=== PATIENT | female | born 1975 | race Caucasian/White ===

== ENCOUNTER → 2019-11-17 11:24 | Outpatient (CLI) | payer MEDICAID, SELFPAY ==
[2018-06-22 13:15] VITALS: BMI 33.5
--- NOTE | 2019-11-17 07:49 | PCM.HP.BLA ---
History and Physical Date of Admission: 11/17/19 Vandana Sinha 1975 ? ? REFERRING PHYSICIAN: Dinorah Neal MD ? CHIEF COMPLAINT: Mammogram Abnormality ? HPI: The patient is a 44 year old female presents with abnormal right breast radiographs. She denies palpable breast masses. She denies nipple discharge. She denies previous breast biopsies. No breast or ovarian cancer known in family. ? Mammograms 10/13/2019 There is a benign lymph node in the right breast at 11 o'clock. There are a grouped pleomorphic calcifications in the right breast superior lateral quadrant posterior depth. No other significant masses or calcifications are seen in the breast. IMPRESSION: SUSPICIOUS FINDING - BIOPSY SHOULD BE CONSIDERED The grouped pleomorphic calcifications in the right breast are suspicious of malignancy. ?A stereotactic biopsy is recommended. ? ? PAST MEDICAL HISTORY ? Anemia 06/12/2013 ? Depression ? ? Hyperlipidemia ? ? Non morbid obesity 05/10/2016 ? PAST SURGICAL HISTORY ? COLONOSCOPY N/A 06/13/2016 ? MAC ? D&C DIAG &/OR THERAP, NOT OB ? 2013 ? GALLBLADDER/EF ? 2012 ? HYSTERECTOMY HX ? 2014 ? LIGATE FALLOPIAN TUBE ? ? ? Tubal ligation ? ? Current Outpatient Medications ? Lactobacillus acidophilus (ACIDOPHILUS) cap ? ? albuterol (PROVENTIL) 2.5 mg /3 mL (0.083 %) nebulizer solution Use 3 mL via nebulizer every 6 hours as needed for Wheezing/Shortness of Breath. Inhale by nebulizer over 5-15 minutes. ? simvastatin (ZOCOR) 40 mg tablet Take 1 tablet by mouth daily at bedtime. For cholesterol ? albuterol HFA (PROVENTIL HFA, VENTOLIN HFA) 90 mcg/actuation inhaler Inhale 2 Puffs as instructed every 4 hours as needed for Wheezing/Shortness of Breath. ? clonazePAM (KLONOPIN) 1 mg tablet Take 1 tablet by mouth three times daily as needed for Anxiety for up to 180 days. ? Fluticasone Propionate (FLOVENT DISKUS) 50 mcg/actuation diskus inhaler Inhale 1 Puff as instructed twice daily. ? albuterol (PROVENTIL) 2.5 mg /3 mL (0.083 %) nebulizer solution Use 3 mL via nebulizer every 4 hours as needed for Wheezing/Shortness of Breath. Use over 5-15minutes. ? docosahexanoic acid/epa (FISH OIL ORAL) Take by mouth. ? aspirin, enteric coated (ASPIRIN, ENTERIC COATED) 81 mg EC tablet Take 81 mg by mouth once daily. ? TURMERIC ORAL Take by mouth. ? ? ALLERGIES: Augmentin [Amoxicillin-Pot Clavulanate]; Steroids [Corticosteroids (Glucocorticoids)] ? PERSONAL HISTORY: Social History ?Tobacco Use ? Smoking status: Former Smoker ? ? Packs/day: 1.00 ? ? Years: 15.00 ? ? Pack years: 15.00 ? ? Types: Cigarettes ? Smokeless tobacco: Never Used ? Tobacco comment: since age 14 yrs old Substance Use Topics ? Alcohol use: Yes ? ? Binge frequency: Less than monthly ? ? Comment: every 3 months ? Drug use: No FAMILY HISTORY ? Diabetes Mother ? ? Hypertension Mother ? ? Heart Mother ? ? Lipids Mother ? ? Cancer Father ? ? ? The review of systems data was entered by the nurse and reviewed and addended as appropriate by me ? Nursing Notes: Pastora Cazares LPN 10/21/2019 2:22 PM Signed REVIEW OF SYSTEMS: General: The patient NOTES fatigue, denies weight loss, NOTES weight gain, denies feeling hot, and denies feelings of cold. Eyes: The patient denies glaucoma, denies eye injury/surgery, does not wear glasses or contacts. Ear/Nose/Throat: The patient denies allergies, denies hayfever, denies ear infections, and denies bloody noses. Cardiovascular: has occasional chest palpitations which she relates to anxiety, denies chest pain, denies heart disease, denies high blood pressure,denies cardiac stent, denies prior heart attack, denies irregular heart beat, denies high cholesterol, denies poor circulation, denies heart failure, other cardiac issues, denies claudication, denies cold feet, denies peripheral arterial stent. Respiratory: The patient denies tuberculosis, denies pneumonia, denies frequent cough, denies pulmonary embolism, denies shortness of breath, and denies coughing up blood. Gastrointestinal: The patient denies difficulty swallowing, denies acid reflux, denies ulcers, denies vomiting, denies jaundice/hepatitis, denies gallbladder problems, denies black or tarry stools, denies hemorrhoids, denies bleeding from rectum, denies diverticulitis, denies constipation, denies diarrhea, denies loss of stool control, and denies hernias. Kidney/Bladder: The patient denies kidney stones, denies urine infections, and denies bloody urine. Skin: The patient denies a history of skin cancer, denies bleeding/changing moles, and denies a history of skin rash. Neurologic: has sinus headaches, has right carpal tunnel symptoms, denies a history of epilepsy/convulsions, denies headaches, denies head/spinal injuries, and denies stroke/TIA. Psychiatric: patient states that she is very anxious, she also admits to episodes of depression Endocrine: The patient denies thyroid disorders, denies diabetes, and denies hormonal problems. Hematologic: The patient denies a history of bruising, denies bleeding, and denies anemia, denies blood clots. Infections: The patient denies a history of measles and mumps, denies rheumatic fever, and denies sexually transmitted diseases. Musculoskeletal: has chronic neck pain with occasional numbness down arm. Obstetrical: menarche onset age 13, first at age 14, , breast feeding denies, BCP use initially at age 15 for about 2 years, then Depo for short period, surgical menopause 5 y ago ? When was patient's last Mammogram screening? 10/2019 Last Colonoscopy: NONE Pastora Cazares LPN ? PHYSICAL EXAMINATION: General: The patient is 44 year old female, well nourished, well hydrated in no acute distress. The patient is oriented to time, place, and person. VITALS: Blood pressure 158/68, pulse 76, temperature 36.6 ?C (97.8 ?F), temperature source Temporal, resp. rate 26, Ht: 5'8 weight 104.3 kg (230 lb), last menstrual period 08/13/2014, SpO2 98 %. Body mass index is 34.97 kg/m?. Head ? Normocephalic. EOM intact with sclera clear and no icterus noted. Mouth with mucus membranes moist. Neck - supple with no jugular venous distention noted. Trachea is midline. No carotid bruits noted. No thyroid enlargement or thyroid nodules detected. No masses noted. Chest/breast ? no asymmetry of breasts noted, no suspicious skin lesions noted, no nipple discharge and both nipples everted, no breast masses noted Lungs ? clear to auscultation. Normal breath sounds. No rales/rhonchi/wheezing noted. No labored breathing noted, such as retractions. No cough heard. Heart ? normal S1 and S2 auscultated. No rubs/clicks/murmurs noted. Regular rate. Abdomen ? soft and benign. Normal bowel sounds No abdominal bruits noted. Difficult to determine if any masses or organomegaly due to body habitus. Extremities ? no calf tenderness noted. No pitting edema noted. Skin ? normal skin integrity. Lymph ? no cervical adenopathy detected, no supraclavicular adenopathy detected, no axillary adenopathy detected Neurological ? gait normal, no focal deficits noted Psych ? calm and appropriate RADIOLOGIC STUDIES: As Noted ? ? IMPRESSION: abnormal right breast radiographs ? PLAN: I have discussed the above with the patient. I have reviewed the breast radiographs with the patient and explained the findings. I have offered right stereotactic breast biopsy. I have explained the procedure to the patient. I have counseled the patient as to the risks of the procedure, including but not limited to: infection, bleeding, injury to any blood vessels/nerves, scar tissue, wound infections, complications of anesthesia, etc. ? the patient understands. The patient wishes to proceed. I have offered valium prior to procedure given patient's stated anxiety, she defers this and states that she will take her klonopin instead and I have counseled patient to have a commercial relief driver with her. I have answered all questions to the patient?s satisfaction and the patient has no further questions. Diagnoses: (R92.8) Abnormal mammogram (primary encounter diagnosis) Return to Clinic: The patient is instructed to follow-up with me after the procedure. ? Selena Ramirez MD
--- NOTE | 2019-11-17 12:00 | BRBX_PTH ---
PATIENT: EUN COBB LOC: [facility] U#:[id number] AGE/SX: 49/F ROOM: RE11/17/[address]: Dr. Selena Ramirez MD : 1975 BED: DIS: SPEC #: [id number] RECD: 11/17/19 12:53 STATUS: COOKIE RESonya #: [id number] VON: 11/17/19 12:[address]: Selena Ramirez DEPT: SURGICAL PATHOLOGY RECD BY: Marino Bassett ENTERED: 11/18/19 09:21 SP TYPE: BREAST BX OT DR: KELIN Lemus Tissues: Right breast, NOS Procedures: Surgery Specimen Level IV HEADER OPERATION: Right breast stereotactic biopsy PRE-OP DIAGNOSIS: Right breast calcifications superior lateral posterior depth TISSUE SUBMITTED: Right breast core tissue ISCHEMIC TIME: 1 minute FIXATION TIME: 31.5 hours MICROSCOPIC DIAGNOSIS Right breast, calcifications superior lateral posterior depth, stereotactic core biopsy: Fibrocystic changes and florid intraductal hyperplasia without atypia. Frequent microcalcifications. Negative for malignancy. See comment. VELMA:nicole 11/19/19 COMMENT Correlation with clinical, radiologic findings and appropriate follow up are necessary. Case has been reviewed in consultation with Dr. Marcano who concurs with the above diagnosis. IDC:AM MICROSCOPIC DESCRIPTION Slides are reviewed. GROSS DESCRIPTION Received is one container labeled with the patient's name and not further designated. The specimen consists of multiple elongated fragments of rivera-yellow fibroadipose tissue mixed with blood clot that in aggregate measure 6 x 3 x 0.3 cm. The entire specimen is submitted in three cassettes. / VELMA:nicole 11/18/19 TC:5 CPT: 31024
--- NOTE | 2019-11-17 19:33 | PCM.OPRPT ---
Report of Operation Date of Procedure: 11/17/19 Pre-Operative Diagnosis: abnormal calcifications of right breast mammograms Post-Operative Diagnosis: same Surgery/Procedure Performed:: right breast stereotactic biopsy Description of Surgical Findings:: upper outer quadrant lesion Type of Anesthesia:: Local - 1% xylocaine Specimen's removed: right breast tissue Estimated Blood Loss (mL): < 1 ml Fluids Replaced: none Description of Procedure: After informed consent was given, the patient was brought into the breast biopsy suite. Appropriate time out protocol was followed. She was then placed in the prone position on the stereotactic biopsy table. The patient?s right breast was then placed in the opening at the head of the table. A patient service specialist compression mammogram was then obtained in the lateral view. The suspicious radiological lesion was then identified. Stereo pictures of the lesion were then taken for XYZ coordinates. The Mammotome biopsy stylus was then positioned where it would be entering into the patient?s breast. The skin at this site was then cleansed with a surgical skin preparation. The skin and subcutaneous tissues at this site were then infiltrated with 1% xylocaine. A small skin incision was made with an 11 blade scalpel. The biopsy stylus was then positioned into the patient?s breast at the proper coordinates of depth. Using the Mammotome vacuum-assist device, several core samples of breast tissue were obtained. A specimen mammogram was the obtained and revealed that the calcifications were within the specimen. A hemostatic marker clip was then placed into the biopsy cavity and a patient service specialist film revealed that it was properly deployed. The patient was then placed in the supine position and pressure was applied to the breast until no active bleeding was noted. Steristrips were applied to reapproximate the skin. A unilateral mammogram in the CC and MLO view were then taken which revealed that the marker clip was in the same area as the previous suspicious lesion. The patient tolerated the procedure well and was discharged from the breast biopsy suite in good condition. - Complications none noted
== END ==
PROVIDERS: PCP Physician Assistant; Referring Provider Surgery; Visit Provider Surgery
DX: N60.11 Diffuse cystic mastopathy of right breast (principal); F32.9 Major depressive disorder, single episode, unspecified; E78.5 Hyperlipidemia, unspecified; F41.9 Anxiety disorder, unspecified; Z86.2 Personal history of diseases of the blood and blood-forming organs and certain disorders involving the immune mechanism; Z79.82 Long term (current) use of aspirin; Z79.899 Other long term (current) drug therapy; Z87.891 Personal history of nicotine dependence
CPT/HCPCS: 19081; 88305; J7050; A4648

== ENCOUNTER 2020-01-09 06:49 | Emergency (ER) | payer MEDICAID, SELFPAY ==
[2018-06-22 13:15] VITALS: BMI 33.5
[2020-01-09 06:50] VITALS: BP 172/98; PULSE 72; RESP 18; TEMP 36.6; O2SAT 97; BMI 36.0
--- NOTE | 2020-01-09 07:11 | ED.DCSUM_ITS ---
- ER Visit Summary Date of Service: 01/09/20 Chief Complaint: Short of breath, acid reflux History of Present Illness: The patient is a 44 F who has been complaining of increasing acid reflux for months. She does have a history of this but is not on any medications to take daily. She states that over the past couple of days her reflux has been increasing. It has been making her short of breath and have a stabbing pain in the right lung. She was belching all night last night. She actually did start omeprazole yesterday but has not had any effects from it. Her cough is been dry nonproductive. She did use her inhaler this morning to see if this would help with her symptoms. She denies any abdominal pain. She has not had a fever. No exposure to anybody with coronavirus. She does have a history of anxiety. Physical Examination: Vital signs reviewed. HEENT exam unremarkable. Heart is regular rate and rhythm without murmurs. Lungs are clear to auscultation. Abdomen is soft and nontender. Extremities reveal no edema. Skin exam normal. Neurologic exam normal. The patient does appear anxious and is very talkative on examination. Test Results: None performed Emergency Department Course and Treatment: Patient's physical exam vital signs are totally normal. I feel that acid reflux is likely causing all of her symptoms and her anxiety may be exacerbating some of the factors. I will give her a dose of a GI cocktail here. I told her to continue the omeprazole daily. She was taking multiple supplements at home in the morning. She was taking this on an empty stomach. This may be causing some gastritis or possibly even an ulcer. Her symptoms were exacerbated last night when she ate some acidic of spaghetti sauce. I told her that the supplements may not be necessary and that she can discontinue them to see if this will help with her symptoms. She will need to call her doctor for follow-up. Treatment Plan: [] Disposition: Discharge Impression: GERD This note was generated with [employer] dictation software. It may contain incorrect words, spelling, and punctuation that were not noted in review of the chart yovani or to signing ED Disposition - Plan for ED Patient: Disposition: Home or Assisted Living Instructions: Gastroesophageal Reflux Disease (GERD) Referrals: Rashi Owens PA [Primary Care Provider] -
[2020-01-09] MEDS: Mag Hydrox/Al Hydrox/Simeth 30 ML UDC PO (07:26)
== END 2020-01-09 07:28 | disposition home or self-care (01) ==
LOC: ED 07:26
PROVIDERS: Emergency Provider Emergency Medicine; PCP Physician Assistant
DX: K21.9 Gastro-esophageal reflux disease without esophagitis (principal); F41.9 Anxiety disorder, unspecified; J45.909 Unspecified asthma, uncomplicated; Z79.899 Other long term (current) drug therapy
CPT/HCPCS: 99283

== ENCOUNTER 2020-02-19 23:41 | Emergency (ER) | payer MEDICAID, SELFPAY ==
[2020-02-19 23:41] VITALS: BP 131/98; PULSE 71; RESP 15; TEMP 36.3; O2SAT 99; BMI 32.5
--- NOTE | 2020-02-20 00:26 | ED.DCSUM_ITS ---
- ER Visit Summary Date of Service: 02/20/20 Chief Complaint: Urinary frequency and pressure History of Present Illness: The patient is a 44 F who has the above symptoms. The symptoms started today. She had symptoms earlier this week and was given a 3-day course of Bactrim. Her symptoms went away but it started again today. She has pressure over her bladder as well as urinary urgency. No dysuria or hematuria. She denies any fevers. Tried Pyridium without relief. Physical Examination: Vital signs reviewed. HEENT exam unremarkable. Heart is regular rate and rhythm without murmurs. Lungs are clear to auscultation. Abdomen is soft and nontender. Extremities reveal no edema. Skin exam normal. Neurologic exam normal. Test Results: Urinalysis positive for infection Emergency Department Course and Treatment: Patient be treated with Macrobid for 7 days. She will call her doctor for follow-up Treatment Plan: [] Disposition: Discharge Impression: UTI This note was generated with [employer] dictation software. It may contain incorrect words, spelling, and punctuation that were not noted in review of the chart prior to signing ED Disposition - Plan for ED Patient: Disposition: Home or Assisted Living Instructions: ED CYSTITIS Female Adult Prescriptions: Nitrofurantoin Macrocrystals [Macrobid] 100 mg PO Q12 #14 cap Transmission Status: Pending to [facility]/pharmacy #[id number] Referrals: Rashi Owens PA [Primary Care Provider] -
[2020-02-20 00:36] LABS: Mucous, Urine 0 SEEN /hpf (<or=2+)
[2020-02-20 00:37] LABS: Color, Urine Amber (Yellow); Glucose, Dipstick Normal (Normal); Ketone-Dipstick 5 mg/dl (Negative); Leukocyte Esterase-Dipstick 500 /ul (Negative); Nitrite-Dipstick Positive (Negative); Occult Blood-Urine 150 /ul (Negative); Protein-Dipstick 30 mg/dl (Negative); Specific Gravity, Urine 1.015 (1.002-1.030); Urine Clarity Sl. Cloudy (Clear); Urine Urobilinogen 8 mg/dl (Normal)
[2020-02-20 00:41] LABS: Urine Bilirubin Dipstick 3 mg/dL (Negative)
[2020-02-20 00:44] LABS: White Blood Cells >100 SEEN /hpf (0-5)
[2020-02-20 00:45] LABS: Bacteria 4+ /hpf (None Seen); Red Blood Cells-Urine 5-10 SEEN /hpf (0-5)
[2020-02-20 00:46] LABS: Squamous Epithelial Cells - UA 0-5 SEEN /hpf (5-10)
[2020-02-20] MEDS: Nitrofurantoin Macrocrystals 100 MG Capsule PO (00:56)
== END 2020-02-20 01:01 | disposition home or self-care (01) ==
PROVIDERS: Emergency Provider Emergency Medicine; PCP Physician Assistant
DX: N39.0 Urinary tract infection, site not specified (principal); F41.9 Anxiety disorder, unspecified; E78.00 Pure hypercholesterolemia, unspecified; Z79.899 Other long term (current) drug therapy
CPT/HCPCS: 81001; 99282